=== PATIENT | male | born 1985 | race Two or more races ===

== ENCOUNTER 2020-09-30 11:33 | Outpatient (CLI) | payer BC | END 2020-09-30 23:59 | disposition home or self-care (01) | LOC: LAB 11:33 | PROVIDERS: ATTEND Specialist | DX: Z01.812 Encounter for preprocedural laboratory examination (principal); Z20.822 Contact with and (suspected) exposure to COVID-19 | CPT/HCPCS: 87426; C9803; U0003 ==

== ENCOUNTER 2020-10-05 07:02 | Inpatient (IN) | payer BC ==
[~2020-10-05] VITALS: Ht 170.2 cm; Wt 81.6 kg
[2020-10-05] MEDS ORDERED: MIDAZOLAM HCL 2 MG/2ML VIAL ONE (07:39)
[2020-10-05] MEDS ORDERED: FENTANYL PF 250MCG/5ML AMPUL ONE (07:39)
[2020-10-05] MEDS ORDERED: HYDROMORPHONE INJ 2 MG/ML DISP.SYRIN ONE (07:40)
[2020-10-05] MEDS ORDERED: FENTANYL PF 100MCG/2ML AMPUL ONE (07:40)
[2020-10-05] MEDS ORDERED: BUPIVACAINE 0.25% 75 MG/30 ML VIAL ONE ×2 (07:40→08:00)
[2020-10-05] MEDS ORDERED: FAMOTIDINE/PF INJ 20 MG/2 ML VIAL IV ONE (07:41)
[2020-10-05] MEDS ORDERED: ROCURONIUM BROMIDE 50 MG/5 ML ONE (07:41)
[2020-10-05] MEDS ORDERED: BACITRACIN 50000 UNITS/VIAL ONE (08:00)
[2020-10-05] MEDS ORDERED: DESFLURANE 240 ML BOTTLE IH ONE (08:20)
[2020-10-05] MEDS ORDERED: SEVOFLURANE 250 ML BOTTLE IH ONE (08:20)
[2020-10-05 12:00] VITALS: BP 124/72
[2020-10-05 16:00] VITALS: BP 123/78
[2020-10-05] MEDS ORDERED: HYDROCODONE/APAP 5/325MG TABLET PO PRN ×3 (19:30)
[2020-10-05] MEDS: HYDROCODONE/APAP 5/325MG TABLET PO PRN (19:37)
[2020-10-05 20:00] VITALS: BP 129/73
[2020-10-05 21:05] VITALS: BP 129/73
[2020-10-06] MEDS: HYDROCODONE/APAP 5/325MG TABLET PO PRN ×3 (02:38→14:15)
[2020-10-06 08:00] VITALS: BP 132/77
[2020-10-06] MEDS ORDERED: HYDR-3980 PO (09:11)
[2020-10-06 16:00] VITALS: BP 130/97
== END 2020-10-06 16:00 | disposition home health service (06) | DRG 494 ==
LOC: DS 07:02 → MED 07:25
PROVIDERS: ADMIT Specialist; ATTEND Specialist
PROC: 0PSG06Z Reposition Left Humeral Shaft with Intramedullary Internal Fixation Device, Open Approach (ICD-10-PCS; principal; 2020-10-05)
DX: S42.302A Unspecified fracture of shaft of humerus, left arm, initial encounter for closed fracture (principal); W19.XXXA Unspecified fall, initial encounter; Y92.9 Unspecified place or not applicable
CPT/HCPCS: 73060-TC; 87081-TC; 97530-TC; A4565; A6253; A6402; C1713; G0378; J1170; J2250; J3010; J3490